=== PATIENT | female | born 1980 | race Caucasian/White ===

== ENCOUNTER 2016-12-15 07:37 | Emergency (ER) | payer OTHER ==
[2016-12-15 07:43] VITALS: BP 118/80
[2016-12-15 08:51] LABS: EBV Response YES
--- NOTE | 2016-12-15 10:30 | UC ---
yovany Tan Timothy, scribed for Debbie Avila MD on 12/15/16 at 0755 . Throat Pain/Nasal Sunil HPI - HPI Summary HPI Summary: Angelica Hatch is a 36 yo female presenting to [facility] with 8/10 sore throat and bilateral ear pain for the past 5 days, without fever. She states she was Dx with strep throat one month ago. Completed abx last month 2/2 strep throat. She denies any lymphadenopathy. Pt denies known Hx of mono. Her MHx includes lyme disease. Chronic back problems for which she sees [facility]. - History of Current Complaint Stated Complaint: EAR PAIN Time Seen by Provider: 12/15/16 07:54 Hx Obtained From: Patient Hx Last Menstrual Period: 12/03/16 Onset/Duration: Gradual Onset, Lasting Days, Still Present Severity: Moderate Pain Intensity: 8 Pain Scale Used: 0-10 Numeric Associated Signs & Symptoms: Negative: Fever - Allergies/Home Medications Allergies/Adverse Reactions: Allergies Allergy/AdvReac Type Severity Reaction Status Date / Time No Known Allergies Allergy Verified 12/15/16 07:43 PMH/Surg Hx/FS Hx/Imm Hx - Additional Past Medical History Additional PMH: see hpi Previously Healthy: Yes - except see hpi - Surgical History Surgical History: None - Family History Known Family History: Negative: Cardiac Disease, Hypertension, Diabetes - Social History Alcohol Use: Occasionally Substance Use Type: None Smoking Status (MU): Never Smoked Tobacco Review of Systems Constitutional: Negative Skin: Negative Eyes: Negative ENT: Sore Throat, Ear Ache - bilat Respiratory: Negative Cardiovascular: Negative Gastrointestinal: Negative Genitourinary: Negative Motor: Negative Neurovascular: Negative Musculoskeletal: Negative Neurological: Other - chronic back pain see hpi Psychological: Negative All Other Systems Reviewed And Are Negative: Yes Physical Exam Triage Information Reviewed: Yes Appearance: Well-Nourished Vital Signs: Initial Vital Signs Temp 97.8 F 12/15/16 07:39 Pulse 93 12/15/16 07:39 Resp 16 12/15/16 07:39 BP 118/80 12/15/16 07:39 Pulse Ox 100 12/15/16 07:39 Vital Signs Reviewed: Yes Eye Exam: Normal ENT: Positive: Pharyngeal erythema - posterior, TM dull - and mendoza bilaterally, Other: - tonsils are equal, trachea midline. EAC benign. Uvula midline.. Negative: Tonsillar swelling, Tonsillar exudate Neck exam: Normal Neck: Positive: No Lymphadenopathy - no adenopathy appreciated, Other: - no meningismus Respiratory: Positive: Chest non-tender, Lungs clear, Normal breath sounds, No respiratory distress, No accessory muscle use, Other: - no dyspnea/tachypnea Cardiovascular: Positive: RRR, No Murmur, Pulses Normal - sitting up, Brisk Capillary Refill Abdominal Exam: Normal Abdomen Description: Positive: Nontender, No Organomegaly, Soft Bowel Sounds: Positive: Present Musculoskeletal Exam: Normal Musculoskeletal: Positive: Strength Intact Neurological Exam: Normal - nonfocal, grossly intact, facial expressions symmetrical Psychological Exam: Normal - conversing easily and appropriately Skin Exam: Normal Skin: Negative: rashes Re-Evaluation - Re-Evaluation First Eval Re-Evaluation Time: 08:02 Change: Unchanged Comment: Pt was informed of negative strep test result. Questions posed by Pt addreesed to best of ability. Throat Pain/Nasal Course/Dx - Course Assessment/Plan: Angelica Hatch is a 36 yo female presenting to [facility] with 8/10 sore throat and bilateral ear pain for the past 5 days, denying fever. ISTOP reference #[id number]. Her Group A Rapid Strep Test was negative. Folllowing re- eval, will order EBV, monospot, CRP, ESR. Pt will arrange follow up with Dr. Jarquin for next week. Questions posed by Pt answered to best of ability. Consider atypical bacteria vs. viral vs. other. After clinical examination and review of her lab studies, she will be discharged with pharyngitis and ear ache with appropriate instructions. C/n exclude primary TMJ. - Differential Dx/Diagnosis Differential Diagnosis/HQI/PQRI: Pharyngitis, Other - atypical bacteria vs. viral. vs other Provider Diagnoses: pharyngitis, ear ache Discharge - Discharge Plan Condition: Stable Disposition: HOME Prescriptions: Azithromyxin LUKE (NF) [Z-Luke (Zithromax) 250 mg tabs #6] 2 tab PO .TODAY, THEN 1 DAILY #6 tab Patient Education Materials: Antihistamine (By mouth), Pharyngitis (ED), Earache (ED) Referrals: Skyler Jarquin MD [Primary Care Provider] - 1 Week Additional Instructions: Please follow up with your primary care physician regarding your visit to urgent care today. Return to urgent care or the emergency department with any new or recurring symptoms. The tests we have ordered for you today are EBV, monospot, CRP, ESR. The documentation as recorded by the yovany ramos Timothy accurately reflects the service I personally performed and the decisions made by me, Debbie Avila MD.
[2016-12-15 12:22] LABS: Hematocrit 39 % (35-47); Hemoglobin 12.5 g/dl (12.0-16.0); Mean Corpuscular HGB Conc 32 g/dl (31-36); Mean Corpuscular Hemoglobin 29 pg (27-31); Mean Corpuscular Volume 90 fL (80-97); Mean Platelet Volume 8 um3 (7.4-10.4); Red Blood Count 4.31 10^6/ul (4.0-5.4); Red Cell Distribution Width 13 % (10.5-15); White Blood Count 13.8 10^3/ul (3.5-10.8)
[2016-12-15 12:31] LABS: Mono Internal Control QC Line Present
[2016-12-15 13:33] LABS: Erythrocyte Sed Rate 20 mm/Hr (0-14)
--- NOTE | 2016-12-16 08:19 | ED ---
Progress - Progress Note Progress Note: Pt with sore throat and ear pain. NEg rapid strep Placed on zithromax Pt with elevated wbc without shift mild elevated sed rate, crp pt referred to PCP no change in current management Re-Evaluation - Re-Evaluation First Eval Re-Evaluation Time: 08:02 Change: Unchanged Comment: Pt was informed of negative strep test result. Questions posed by Pt addreesed to best of ability. Course/Dx - Diagnoses Provider Diagnoses: Pharyngitis
[2016-12-16 12:38] LABS: EBV Capsid Ag IgG Ab Positive (Negative); EBV Capsid Ag IgM Ab Negative (Negative)
== END 2016-12-15 08:25 | disposition home or self-care (01) ==
LOC: UCEAST 07:37
DX: J02.9 Acute pharyngitis, unspecified (principal); H92.03 Otalgia, bilateral
CPT/HCPCS: 36415; 85025; 85652; 86140; 86308; 86664; 86665; 87651; 99212; G0463